=== PATIENT | female | born 1965 | race Caucasian/White ===

== ENCOUNTER 2017-05-17 06:15 | Day surgery (SDC) | payer BC ==
[2017-05-14 11:17] VITALS: BMI 28.8
[2017-05-17] MEDS ORDERED: LIDOCAINE HCL 1%, 10 MG/ML (20ML VIAL) ONE (07:19)
[2017-05-17] MEDS ORDERED: ceFAZolin SODIUM 1 GM VIAL ONE ×2 (07:19→08:29)
[2017-05-17] MEDS ORDERED: SODIUM BICARBONATE 8.4% 50 MEQ/50 ML VIAL ONE (07:19)
[2017-05-17] MEDS ORDERED: EPINEPHrine/PF 1 MG/1 ML (1:1,000) AMPULE ONE (07:19)
[2017-05-17] MEDS ORDERED: GENTAMICIN SO4 80 MG/2 ML VIAL ONE (07:19)
[2017-05-17] MEDS ORDERED: MIDAZOLAM HCL 2 MG/2 ML SINGLE DOSE VIAL ONE (07:43)
[2017-05-17] MEDS ORDERED: HALOPERIDOL LACTATE 5 MG/ML ONE (07:45)
[2017-05-17] MEDS ORDERED: SUCCINYLCHOLINE CHLORIDE 200 MG/10 ML VIAL ONE (08:02)
[2017-05-17] MEDS ORDERED: PROPOFOL 20 ML ONE ×4 (08:02→10:15)
[2017-05-17] MEDS ORDERED: BUPIVACAINE HCL/EPINEPHRINE/PF 30 ML VIAL IJ ONE (08:12)
[2017-05-17] MEDS ORDERED: BUPIVACAINE 0.25% /EPI 1:200,000 10 ML VIAL INF ONE (08:15)
[2017-05-17] MEDS ORDERED: ONDANSETRON 4 MG/2 ML VIAL ONE (08:29)
[2017-05-17] MEDS ORDERED: DEXAMETHASONE SOD PHOSPHATE 4 MG/1 ML VIAL ONE (08:29)
[2017-05-17] MEDS ORDERED: ePHEDrine SULFATE 50 MG/1 ML AMPULE ONE (08:43)
[2017-05-17] MEDS ORDERED: LIDOCAINE HCL/PF 2% SDV 5ML VIAL ONE (10:05)
[2017-05-17] MEDS ORDERED: GUM MASTIC/STORAX/MSAL/ALCOHOL 1 DRP DROPSBTL MC ONE (10:50)
[2017-05-17] MEDS ORDERED: PROMETHAZINE HCL 25 MG/1 ML VIAL IVPUSH PRN (11:14)
[2017-05-17] MEDS ORDERED: oxyCODONE HCL 5 MG TABLET PO PRN ×2 (11:14)
[2017-05-17] MEDS ORDERED: ONDANSETRON 4 MG/2 ML VIAL IVPUSH PRN (11:14)
[2017-05-17] MEDS ORDERED: LACTATED RINGERS SOLUTION 1,000 ML IV SCH (11:15)
--- NOTE | 2017-05-17 11:20 | OP ---
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 dog ears to lower abdominal incision Operation: Left breast madyson flap reconstruction with revision, Right breast mastopexy for symmetry with fat grafting from abdomen and flanks to left breast. Revision of bilateral dog ears to lower abdomen Findings: same Implants: none Post-Operative Diagnosis: Same as Pre-op Surgeon: Connor Rodríguez Director Of Property Management: Itzel Elizondo Anesthesiologist/RAG WASHER: Rogelio Canada Anesthesia: Local, MAC Specimens Removed: left madyson scar tissue Estimated Blood Loss (mls): 50 Drains & Tubes with Location: none
[2017-05-17] MEDS ORDERED: oxyCODONE HCL 5 MG TABLET ONE (12:53)
[2017-05-17 13:16] VITALS: TEMP 97.7
[2017-05-17 16:14] VITALS: BP 121/74; PULSE 78
--- NOTE | 2017-05-21 14:04 | PATH ---
Surgical Pathology Report Patient Name: JONES AGUILAR [facility]. Rec. #: [id number] /Age/Gender: 1965 (Age: 52) / F Account: [id number] Location: [facility] AMBULATORY Taken: 05/17/2017 Received: 05/17/2017 Reported: 05/21/2017 Physicians: Connor Spence M.D. Specimen(s) Received RIGHT BREAST SKIN Clinical History Left breast cancer Final Diagnosis SKIN, RIGHT BREAST, MASTOPEXY: UNREMARKABLE SKIN. Electronically Signed Josep Toledo M.D. Gross Description Patient in formalin, labeled "right breast skin" after fragments of faulkner grossly unremarkable skin 10.0 x and 1.0 x 0.5 cm and 1.8 x 1.0 x 0.5 cm. Technical Solutions Engineer sections submitted one cassette. AF/05/18/2017 final/05/18/2017
--- NOTE | 2017-05-22 00:28 | OP ---
DATE OF OPERATION: 05/17/2017 PREOPERATIVE DIAGNOSIS: 1. Personal history of left breast cancer. 2. Acquired absence of left breast. 3. Deformity of reconstructive breast. 4. Asymmetry of breasts due to cancer. POSTOPERATIVE DIAGNOSIS: 1. Personal history of left breast cancer. 2. Acquired absence of left breast. 3. Deformity of reconstructive breast. 4. Asymmetry of breasts due to cancer. PROCEDURE: 1. Revision of left breast reconstruction. 2. Subcutaneous tissue transfer from abdomen and flanks to left breast. 3. Right vertical mastopexy for symmetry. 4. Revision of bilateral abdominal scars (15 cm length total). ATTENDING SURGEON: Connor Rodríguez MD SALES ATTENDANT BUILDING MATERIALS: JEFF Hooks ANESTHESIA: General with LMA. ESTIMATED BLOOD LOSS: 30 mL. SPECIMEN: None. DRAINS: None. COMPLICATIONS: None. CONDITION: Stable to recovery room, extubated. INDICATIONS: The patient is a 52-year-old female with a history of left breast cancer who has previously undergone a left nipple-sparing mastectomy and immediate tissue director of securities and real estate reconstruction. The patient went on to receive adjuvant radiation therapy and then underwent delayed left breast reconstruction with a deep inferior epigastric inventory control specialist flap. The patient has done well after this delayed autologous reconstruction and is now brought back to the operating room for finalization of her reconstruction. The risks, benefits, and alternatives were discussed with the patient in detail and all questions were answered. The risks included, but are not limited to bleeding, infection, pain, need for revision, or further surgery, damage to nearby structures including nerves, arteries, veins, and tendons, residual breast asymmetry, decreased or absent nipple sensation, partial or complete loss of the nipple. The patient understands these risks and has elected to proceed with surgery. DESCRIPTION OF PROCEDURE: After proper identification and marking the patient in the preoperative holding area, the patient was transported to the operating room and placed supine on the table and noninvasive anesthesia monitors were applied. Intravenous access was established. General anesthesia was administered and an LMA was inserted without difficulty. SCD boots were applied to the bilateral lower extremities. Intravenous antibiotics were then given. The patient's bilateral breasts as well as the abdomen and flanks were then prepped and draped in the usual sterile fashion. Attention was first turned towards the left breast where the skin paddle of the deep inferior epigastric inventory control specialist flap was outlined. This was infiltrated with 0.5% lidocaine with 1:200,000 units of epinephrine. Once this was given time to take effect, this was incised with a No. 10 blade through the full thickness of the dermis and electrocautery was then used to remove the skin paddle just below the level of the dermis. There was noted to be healthy bleeding fat underneath. The skin was passed off of the field and discarded. At this point, the mastectomy skin flap was raised just above the level of the deep inferior epigastric inventory control specialist flap all of the way up to the superior pole of the flap. The left breast pocket was then irrigated and hemostasis was ensured. All loose fat debris was removed. The mastectomy skin flap on the left side was then advanced inferiorly and there was noted to be significant improvement in the position of the nipple as well as the overall breast shape. Therefore, the inframammary fold incision was closed in layers using a 3-0 PDS in a buried deep dermal fashion followed by a 3-0 Monocryl in a running subcuticular fashion. At this point, attention was turned towards the abdomen where 0.5% lidocaine with 1:200,000 units of epinephrine was infiltrated into the subcutaneous tissues of the central abdomen as well as bilateral flanks. Once this was completed, a similar local anesthetic solution was infiltrated along the lateral extent of the lower abdominal scar bilaterally. An elliptical dog-ear excision was designed bilaterally, measuring 7.5 cm in length on each side for a total of 15 cm in length. Once the local anesthetic solution had been infiltrated, a No. 15 blade was used to excise bilateral dog ears. Care was taken to ensure an adequate amount of subcutaneous fat was included with the redundant skin and this was passed off of the field to be discharged. Through these dog-ear excision sites, standard tumescent solution was infiltrated into the subcutaneous tissue of the abdomen and bilateral flanks. Once this was given time to take effect, subcutaneous tissue was then harvested using the Micro Air System and a 5-mm cannula. The lipoaspirate was then processed on the back table and the isolated adipose sites were loaded into 10 mL syringes in preparation for subcutaneous tissue transfer. Once an adequate amount of lipoaspirate had been harvested, the bilateral dog-ear excision sites were closed in layers using a 3-0 PDS in a buried deep dermal fashion followed by 3-0 Monocryl in a running subcuticular fashion. At this point, attention was turned towards the right breast where a 42-mm cookie cutter was centered around the nipple-areolar complex. This was incised. The reminder of the vertical mastopexy incisions were incised as well. The skin to be removed was deepithelialized. At this point, the breast tissue was elevated off of the skin flaps inferomedially and inferolaterally up to the new level of the inframammary fold. Once this was completed, the inferior breast tissue was raised off of the pectoralis fascia and was transposed superiorly and secured to the chest wall in this more superior direction using a 2-0 Vicryl suture in a simple interrupted fashion. With the parenchymal molding completed, the nipple areolar complex was transposed superiorly and was inset using a 3-0 PDS in a buried deep dermal fashion followed by a 4-0 nylon in a half-buried horizontal mattress fashion. The vertical limb of the mastopexy pattern was then closed using a 3-0 PDS in a buried deep dermal fashion followed by a 3-0 Monocryl in a running subcuticular fashion. Once this was completed, attention was turned towards completion of the subcutaneous tissue transfer on the left breast. The isolated adipose sites were layered into the superior pole of the left breast using a modified Pérez technique. A total of 100 mL was infiltrated into the left breast and the access incisions were closed with a 5-0 plain gut in a simple interrupted fashion. Once this was completed, Mastisol and Steri-Strips were placed over all incision lines. The patient was placed into a soft surgical bra with care taken to ensure adequate padding with fluffs and ABD pads. The patient was fully awakened and extubated without incident, transported to the recovery room in stable condition. CONNOR RODRÍGUEZ M.D. [id number]
== END 2017-05-17 14:45 | disposition home or self-care (01) ==
LOC: FASU 06:15
PROVIDERS: ATTEND Plastic Surgery
PROC: 0HRU07Z Replacement of Left Breast with Autologous Tissue Substitute, Open Approach (ICD-10-PCS; principal; 2017-05-17 08:00)
PROC: 0HQT0ZZ Repair Right Breast, Open Approach (ICD-10-PCS; 2017-05-17 08:00)
PROC: 0JQ80ZZ Repair Abdomen Subcutaneous Tissue and Fascia, Open Approach (ICD-10-PCS; 2017-05-17 08:00)
DX: Z85.3 Personal history of malignant neoplasm of breast (principal); Z90.12 Acquired absence of left breast and nipple; N65.0 Deformity of reconstructed breast; N65.1 Disproportion of reconstructed breast; L90.5 Scar conditions and fibrosis of skin
CPT/HCPCS: 84703; 88302-TC; 94760

== ENCOUNTER 2018-08-14 06:23 | Day surgery (SDC) | payer BC ==
[2018-08-02 15:39] VITALS: BMI 28.3
[2018-08-14] MEDS ORDERED: EPINEPHrine/PF 1 MG/1 ML (1:1,000) AMPULE ONE (07:12)
[2018-08-14] MEDS ORDERED: ceFAZolin SODIUM 1 GM VIAL ONE ×2 (07:12→08:36)
[2018-08-14] MEDS ORDERED: GENTAMICIN SO4 80 MG/2 ML VIAL ONE (07:12)
[2018-08-14] MEDS ORDERED: LIDOCAINE HCL 1%, 10 MG/ML (20ML VIAL) ONE (07:12)
[2018-08-14] MEDS ORDERED: LIDOCAINE 1%/EPI 1:100000 (20 ML MULTI DOSE VIAL) ONE (07:16)
[2018-08-14] MEDS ORDERED: BACITRACIN 15 GM TUBE TOPICAL OINTMENT ONE (07:16)
[2018-08-14] MEDS ORDERED: SCOPOLAMINE HYDROBROMIDE 1 PATCH PATCH.TD72 ONE (07:24)
[2018-08-14] MEDS ORDERED: fentaNYL CITRATE 250 MCG/5 ML VIAL ONE (07:32)
[2018-08-14] MEDS ORDERED: PROPOFOL 20 ML ONE ×4 (07:32)
[2018-08-14] MEDS ORDERED: SUCCINYLCHOLINE CHLORIDE 200 MG/10 ML VIAL ONE (07:32)
[2018-08-14] MEDS ORDERED: ROCURONIUM BROMIDE 50 MG/5 ML VIAL ONE (07:32)
[2018-08-14] MEDS ORDERED: MIDAZOLAM HCL 2 MG/2 ML SINGLE DOSE VIAL ONE (07:32)
[2018-08-14] MEDS ORDERED: SODIUM BICARBONATE 8.4% 50 MEQ/50 ML VIAL ONE (07:36)
[2018-08-14] MEDS ORDERED: LIDOCAINE HCL 2% (20ML MULTI-DOSE VIAL) NR ONE (07:36)
[2018-08-14] MEDS ORDERED: LIDOCAINE HCL/PF 2% SDV 5ML VIAL ONE (08:36)
[2018-08-14] MEDS ORDERED: DEXAMETHASONE SOD PHOSPHATE 4 MG/1 ML VIAL ONE (08:36)
[2018-08-14] MEDS ORDERED: KETOROLAC TROMETHAMINE 30 MG/1 ML VIAL ONE (08:36)
[2018-08-14] MEDS ORDERED: ONDANSETRON 4 MG/2 ML VIAL ONE (08:36)
[2018-08-14] MEDS ORDERED: LIDOCAINE HCL 2% JELLY (5 ML/TUBE) ONE (08:36)
[2018-08-14] MEDS ORDERED: ePHEDrine SULFATE 50 MG/1 ML AMPULE ONE (08:51)
[2018-08-14] MEDS ORDERED: DESFLURANE GAS 240 ML BOTTLE IH ONE (10:26)
[2018-08-14] MEDS ORDERED: GUM MASTIC/STORAX/MSAL/ALCOHOL 1 DRP DROPSBTL MC ONE (10:48)
[2018-08-14] MEDS ORDERED: PROMETHAZINE HCL 25 MG/1 ML VIAL IVPB PRN (11:19)
[2018-08-14] MEDS ORDERED: oxyCODONE HCL 5 MG TABLET PO PRN ×2 (11:19)
[2018-08-14] MEDS ORDERED: ONDANSETRON 4 MG/2 ML VIAL IVPUSH PRN (11:19)
--- NOTE | 2018-08-14 11:22 | OP ---
Operative Note - Note: Operative Date: 08/14/18 Pre-Operative Diagnosis: left breast cancer Operation: revision of umbilical/abdominal scar, revision of right breast reconstruction, liposuction and fat transfer from abdomen to left breast Surgeon: Connor Rodríguez Stained Glass Window Designer: Kanika Camarillo Anesthesiologist/LUMPIA WRAPPER MAKER: Rogelio Canada Anesthesia: General Estimated Blood Loss (mls): 30 Fluid Volume Replaced (mls): 1,200 Operative Report Dictated: Yes
[2018-08-14 12:45] VITALS: TEMP 97.9
[2018-08-14 12:50] VITALS: BP 110/70; PULSE 88
--- NOTE | 2018-08-14 12:59 | SURG ---
Surgery Baker Chef Note Baker Chef: Kanika Camarillo PA-C Date of Service: 08/14/18 Diagnosis: left breast cancer Procedure: revision of umbilical/abdominal scar, revision of right breast reconstruction, liposuction and fat transfer from abdomen to left breast I was present for the entirety of the operative procedure. For further detail, please refer to operative report. Visit type - Case Type Case Type: Scheduled - Emergency Emergency Visit: No - New patient This patient is new to me today: Yes Date on this admission: 08/14/18
--- NOTE | 2018-08-19 15:51 | PATH ---
Surgical Pathology Report Patient Name: JONES AGUILAR [facility]. Rec. #: [id number] /Age/Gender: 1965 (Age: 53) / F Account: [id number] [facility] Taken: 08/14/2018 Received: 08/14/2018 Reported: 08/19/2018 Physicians: Connor Rodríguez MD Specimen(s) Received RIGHT BREAST SKIN AND TISSUE Clinical History Revision of right breast reconstruction Final Diagnosis RIGHT BREAST SKIN AND TISSUE, EXCISION: SEGMENT OF SKIN AND UNDERLYING ADIPOSE TISSUE WITH NO DIAGNOSTIC ABNORMALITIES. Electronically Signed Jace Harris M.D. Gross Description Received in formalin labeled "right breast skin and tissue," is a 92 g, 13.0 x 8.5 x 2.8 cm aggregate of 2 faulkner, unoriented portions of skin with underlying soft tissue. The epidermal surfaces are remarkable. Sectioning reveals unremarkable fibroadipose tissue. Environmental Science Instructor sections are submitted in one cassette. /08/14/2018 saudi08/14/2018
--- NOTE | 2018-08-25 13:37 | OP ---
DATE OF OPERATION: 08/14/2018 PREOPERATIVE DIAGNOSES: 1. Personal history of breast cancer. 2. Acquired absence of left breast. 3. Deformity of reconstructed breast. 4. Asymmetry of flandreau right breast with reconstructed left breast. POSTOPERATIVE DIAGNOSES: 1. Personal history of breast cancer. 2. Acquired absence of left breast. 3. Deformity of reconstructed breast. 4. Asymmetry of flandreau right breast with reconstructed left breast. PROCEDURES: 1. Subcutaneous tissue transfer from abdomen and flanks to left breast. 2. Right breast symmetrizing reduction. 3. Revision of lower abdominal and umbilical scars (15 cm total length). ATTENDING SURGEON: Connor Rodríguez MD ANESTHESIA: General with LMA. ESTIMATED BLOOD LOSS: 20 mL. SPECIMEN: Right breast skin and tissue to Pathology. DRAINS: None. COMPLICATIONS: None. CONDITION: Stable to recovery room, extubated, extubated. INDICATIONS: The patient is a 53-year-old female with a history of left breast cancer, who has previously undergone a left nipple-sparing mastectomy and autologous reconstruction with a deep inferior epigastric doweler and microvascular free flap. Postoperatively the patient has required adjuvant radiation therapy and has significant radiation-induced fibrosis changes of her left mastectomy skin flaps. The patient is brought to the operating room today for secondary breast reconstruction including subcutaneous tissue transfer from the abdomen and flanks to the left breast as well as a symmetrizing right breast reduction. In addition, the patient has hypertrophic scars of her lower abdomen and umbilicus and requires revision of these. The risks, benefits, and alternatives of the secondary breast reconstruction were discussed with the patient in detail and all questions were answered. The risks include but are not limited to bleeding, infection, pain, need for revision or further surgery, residual breast asymmetry, damage to neighboring structures including nerves, arteries, veins, and tendons. The patient understands these risks and has elected to proceed with surgery. PROCEDURE: After proper identification and marking the patient in the preoperative holding area, the patient was transported to the operating room and placed supine on the table, and noninvasive anesthesia monitors were applied. Intravenous access was established. General anesthesia was administered. LMA was inserted without difficulty. SCD boots were applied to bilateral extremities. Intravenous antibiotics were then given. The patient's bilateral breasts as well as abdomen and flanks were then prepped and draped in the usual sterile fashion. After a timeout was performed, local anesthesia consisting of 1% lidocaine with 1:100,000 units of epinephrine was infiltrated along the planned incisions of the lower abdomen, umbilicus, and right breast. A total of 20 mL of local anesthesia were given. At this point, a number 10 blade was used to incise around the hypertrophic lower abdominal scar. This measured a total of 12 cm in length. Both limbs were carried down into a subcutaneous plane with a number 10 blade and the hypertrophic scar was excised in a full thickness fashion and passed off the field to be discarded. Next, attention was turned towards the umbilicus, where a 15 blade was used to incise around the hypertrophic scar of the umbilicus. Next, the hypertrophic scar was excised with a curved iris scissors. The total length measured 3 cm. At this point, utilizing the access from the lower abdomen and umbilicus, standard tumescent solution was infiltrated into the subcutaneous tissue of the abdomen and bilateral flanks. Once an appropriate amount of time was given for tumescent solution to take effect, the MicroAire was loaded with a 5-mm cannula and was used to harvest lipoaspirate from the abdomen and bilateral flanks. The lipoaspirate was collected into the DVS Intelestream System for later processing. Once an adequate amount of lipoaspirate had been collected, the lower abdominal incision was closed in layers using a 2-0 Vicryl in an interrupted buried fashion in Kika's layer, followed by a 3-0 Monocryl in a buried deep dermal fashion, and finally a 4-0 Monocryl in a running subcuticular fashion. Attention was turned towards the umbilicus, where a 3-0 PDS suture was placed in an interrupted buried deep dermal fashion, followed by a 4-0 Monocryl in a running subcuticular fashion. Once the lower abdominal and umbilical incisions were completely closed, attention was turned towards lipoaspirate. Multiple warm lactated Ringer washes were used to irrigate the fat cells, and the isolated fat cells, once washed, were loaded into 10 mL syringes in preparation for subcutaneous tissue transfer. Next, attention was turned towards the right breast. The 42-mm cookie cutter was centered on the nipple-areolar complex. This incision was then made with a number 15 blade. The remainder of the Huertas skin reduction pattern incisions were then made. The superior pedicle was then designed and this was de-epithelialized. At this point, a resection of the inferior breast tissue was performed from a medial to lateral direction. The resected breast tissue was passed off the field, to be sent to Pathology. The right breast pocket was then irrigated and hemostasis was ensured. At this point, the superior pedicle on the right side was transposed superiorly and the nipple-areolar complex was inset using a 3-0 Monocryl in a buried deep dermal fashion, followed by 4-0 nylon in a simple running fashion. The vertical and horizontal limbs were then reapproximated, first at the T point along the inframammary fold with a half-buried horizontal mattress suture using a 2-0 nylon. The vertical and horizontal limbs were then closed in layers using a 2-0 Vicryl in an interrupted buried deep dermal fashion, followed by a 3-0 Monocryl in a running subcuticular fashion. Once the right breast incisions were closed, attention was turned towards the left breast. Multiple stab incisions were made along the patient's previous inframammary fold scar. Utilizing these multiple access incisions, the Pérez cannulas were then used to layer the isolated adipocytes into the left breast pocket. The adipocytes were layered in a modified Pérez technique in all aspects of the reconstructed breast. A total of 180 mL of adipocytes were transferred. The access incisions along the inframammary fold were then closed with a 5-0 plain gut in a simple interrupted fashion. At this point, Mastisol and Steri-Strips were applied to all closure lines. The patient was then placed into a soft surgical bra, with care taken to ensure adequate padding with fluffs and ABD pads. The patient was also placed into an abdominal binder. At this point, the patient was slowly awakened and was extubated without incident and was transported to recovery room in stable condition. CONNOR RODRÍGUEZ M.D. [id number]
== END 2018-08-14 12:50 | disposition home or self-care (01) ==
LOC: FASU 06:23
PROVIDERS: ATTEND Plastic Surgery
PROC: 0HN7XZZ Release Abdomen Skin, External Approach (ICD-10-PCS; 2018-08-14)
PROC: 0HRU07Z Replacement of Left Breast with Autologous Tissue Substitute, Open Approach (ICD-10-PCS; principal; 2018-08-14 08:45)
PROC: 0HBT0ZZ Excision of Right Breast, Open Approach (ICD-10-PCS; 2018-08-14 08:45)
DX: Z85.3 Personal history of malignant neoplasm of breast (principal); N65.0 Deformity of reconstructed breast; N65.1 Disproportion of reconstructed breast; Z90.12 Acquired absence of left breast and nipple
CPT/HCPCS: 88304-TC; 94760

== ENCOUNTER 2022-11-02 09:09 | Day surgery (SDC) | payer BC, OTHER ==
[2022-10-05 15:48] VITALS: BMI 27.6
[2022-11-02] MEDS ORDERED: SODIUM BICARBONATE 8.4% 50 MEQ/50 ML VIAL ONE (09:59)
[2022-11-02] MEDS ORDERED: EPINEPHrine/PF 1 MG/1 ML (1:1,000) AMPULE ONE (09:59)
[2022-11-02] MEDS ORDERED: LIDOCAINE 1%-EPI 1:100,000 30 ML MDV IJ ONE (10:00)
[2022-11-02] MEDS ORDERED: BUPIVACAINE HCL 100 ML ONE (10:00)
[2022-11-02] MEDS ORDERED: LIDOCAINE HCL 2% (20ML MULTI-DOSE VIAL) ONE (10:00)
[2022-11-02] MEDS ORDERED: BUPIVACAINE HCL/PF 2.5 MG/ML - 30 ML VIAL IJ ONE (10:00)
[2022-11-02] MEDS ORDERED: POVIDONE-IODINE 5% OPHTHALMIC PREP 30 ML SOLUTION ONE ×2 (10:33→12:05)
[2022-11-02] MEDS ORDERED: LIDOCAINE HCL/PF 2% SDV 5ML VIAL ONE (11:15)
[2022-11-02] MEDS ORDERED: PROPOFOL 20 ML ONE ×2 (11:16→14:02)
[2022-11-02] MEDS ORDERED: MIDAZOLAM HCL 2 MG/2 ML SINGLE DOSE VIAL ONE ×2 (11:16→14:26)
[2022-11-02] MEDS ORDERED: SUCCINYLCHOLINE CHLORIDE 200 MG/10 ML SYRINGE ONE (11:16)
[2022-11-02] MEDS ORDERED: ROCURONIUM BROMIDE 50 MG/5 ML SYRINGE ONE (11:16)
[2022-11-02] MEDS ORDERED: BUPIVACAINE HCL/EPINEPHRINE/PF 30 ML VIAL IJ ONE (11:41)
[2022-11-02] MEDS ORDERED: ceFAZolin SODIUM 1 GM VIAL ONE (11:53)
[2022-11-02] MEDS ORDERED: DEXAMETHASONE SOD PHOSPHATE 4 MG/1 ML VIAL ONE (11:53)
[2022-11-02] MEDS ORDERED: MINERAL OIL/PETROLATUM,WHITE 3.5 GM TUBE ONE (11:58)
[2022-11-02] MEDS ORDERED: HYDROmorphone HCL/PF 1 MG/ML VIAL ONE (14:03)
[2022-11-02] MEDS ORDERED: NEOSTIGMINE METHYLSULFATE 0.5 MG/1 ML - 10 ML MDV ONE (14:28)
[2022-11-02] MEDS ORDERED: BSS (NA/CA/MG/K) BALANCED SALT SOLUTION OPHTH SOLN 15 ML BOTTLE ONE (15:03)
[2022-11-02] MEDS ORDERED: BACITRACIN/POLYMYXIN OPH OINT 3.5 GM TUBE ONE (15:09)
[2022-11-02] MEDS ORDERED: BACITRACIN ZINC 15 GM TUBE TOPICAL OINTMENT ONE (15:09)
[2022-11-02] MEDS ORDERED: ONDANSETRON 4 MG/2 ML VIAL IVPUSH PRN (15:35)
[2022-11-02] MEDS ORDERED: oxyCODONE HCL 5 MG TABLET PO PRN (15:35)
[2022-11-02] MEDS ORDERED: ACETAMINOPHEN 1000 MG/100 ML BAG IVPB ONE (15:36)
[2022-11-02] MEDS ORDERED: ACETAMINOPHEN INJECTION 100 ML IVPB ONE (15:44)
[2022-11-02] MEDS ORDERED: LACTATED RINGERS SOLUTION 1,000 ML IV SCH (15:45)
[2022-11-02 18:49] VITALS: TEMP 97.8
[2022-11-02 18:52] VITALS: RESP 17
[2022-11-02 18:57] VITALS: BP 128/74; PULSE 64
== END 2022-11-02 17:30 | disposition home or self-care (01) ==
LOC: FASU 09:09
PROVIDERS: ATTEND Plastic Surgery
PROC: 0HRV37Z Replacement of Bilateral Breast with Autologous Tissue Substitute, Percutaneous Approach (ICD-10-PCS; 2022-11-02)
PROC: 080R0ZZ Alteration of Left Lower Eyelid, Open Approach (ICD-10-PCS; 2022-11-02)
PROC: 080Q0ZZ Alteration of Right Lower Eyelid, Open Approach (ICD-10-PCS; 2022-11-02)
PROC: 09UK07Z Supplement Nasal Mucosa and Soft Tissue with Autologous Tissue Substitute, Open Approach (ICD-10-PCS; 2022-11-02)
PROC: 0H0V07Z Alteration of Bilateral Breast with Autologous Tissue Substitute, Open Approach (ICD-10-PCS; principal; 2022-11-02 12:14)
DX: Z85.3 Personal history of malignant neoplasm of breast (principal); Z91.02 Food additives allergy status; N65.0 Deformity of reconstructed breast; N65.1 Disproportion of reconstructed breast; E65 Localized adiposity; J34.89 Other specified disorders of nose and nasal sinuses
CPT/HCPCS: 88305-TC; 94760